=== PATIENT | female | born 1980 | race Caucasian/White ===

== ENCOUNTER 2017-03-31 19:30 | Emergency (ER) | payer OTHER ==
[~2017-03-31] VITALS: Ht 177.8 cm; Wt 90.0 kg
[~2017-03-31 19:30] MED LIST: DXM4T PO
[2017-03-31 19:40] VITALS: BP 127/85; PULSE 83; RESP 16; O2SAT 98
--- NOTE | 2017-03-31 20:15 | DRSVH ---
PROCEDURE: X-RAY LEFT HAND, MINIMUM THREE VIEWS ([id number]) INDICATIONS: injury TECHNIQUE: 3 views of the hand(s) acquired. COMPARISON: None. FINDINGS: Bones: No fractures or dislocations. Carpal bones are normally aligned. No suspicious bony lesions . Soft tissues: No suspicious soft tissue calcifications. IMPRESSION: No bony abnormality is identified. No radiopaque foreign body is seen. Dictated by: Alex Butts M.D. on 03/31/2017 at 20:12 Approved by: Alex Butts M.D. on 03/31/2017 at 20:13
--- NOTE | 2017-03-31 20:18 | ED.REPORT ---
HPI-Extremity Problem Upper Date of Service Mar 31, 2017 ED Provider: Jake Quintero MD Pt is a generally healthy 36 y/o female presenting to the ED due to left hand injury which occurred at 18:30. The patient was at work and a metal object punctured her left hand while she was working with a metal shelf, she is not sure what it was. She c/o mild associated 4th digit numbness about the ulnar aspect. She denies any other injuries or complaints. She is able to fully flex and extend her finger. She is not sure how deeply the hand was punctured. Nursing Notes Stated Complaint: HAND LACERATION Chief Complaint: Laceration Nursing Notes Reviewed: Yes Allergies: Coded Allergies: Cephalosporins (Verified Allergy, Severe, CEFTRIAXONE anaphlaxis, 03/31/17) Penicillins (Verified Allergy, Severe, Anaphlaxis, 03/31/17) azithromycin (Verified Allergy, Intermediate, Hives, 03/31/17) doxycycline (Verified Allergy, Intermediate, rash, 03/31/17) Sulfa (Sulfonamide Antibiotics) (Verified Allergy, Mild, rash, 03/31/17) Scheduled Clindamycin (Clindamycin) 300 Mg Capsule 300 MG PO QID Dexamethasone (Dexamethasone) 4 Mg Tablet 8 MG PO DAILY 8mg 08/18 and 08/19 General Time Seen by MD: 20:14 Chief Complaint Hand Injury left Hx Obtained From: Patient Arrived By: Walk-in Onset Occurred: 1 - 4 hours ago Symptom Duration: Since onset Location: : Hand left Quality: Painful Severity: Current: Moderate Severity: Maximum: Moderate Past Medical History Past Medical History Asthma Past Surgical History denies Family History Grandmother [place] x2 Smoking History Current Every Day Smoker Social History Alcohol Use: "Social" Ambulatory Status Independent Review of Systems Constitutional: Denies: Chills, Fever Musculoskeletal: Reports: Extremity pain Neurologic: Reports: Numbness, Denies: Weakness Complete sys rev & neg: except as marked. Physical Exam Initial Vital Signs Vital Signs (First) Date Time Temp Pulse Resp B/P Pulse Ox O2 Delivery O2 Flow Rate FiO2 03/31/17 19:40 37. 83 16 127/85 98 Room Air Initial VS: Reviewed, Vital signs normal Head / Eyes: Atraumatic, Normocephalic, PERRL ENT: Mucous membranes moist, Conjunctiva normal, No scleral icterus Neck: Supple, Full range of motion Respiratory: No respiratory distress Cardiovascular: Intact distal pulses Abdomen / GI: Soft, No distention Lower Extremities: Vascular intact, Neuro intact, No swelling Skin: Warm, Dry, No cyanosis Neurologic: Alert, Oriented, Nonfocal Psychiatric: Mood/affect normal, Behavior normal, Normal thought content General/Constitutional: Awake, Alert, No acute distress, Cooperative, Not toxic appearing Wrist / Hand: Full range of motion, No deformity, Neurologic intact, Vascular intact, No ligamentous injury, Tendon function NL, No compartment syndrome, No circumferential injury, No clubbing/cyanosis, No edema Puncture wound about dorsum of left hand between 4th and 5th fingers. Extends to subcutaneous tissue. No evidence of neurovascular or ligamentous structures. Able to fully flex and extend fingers. No FB present. Interpretation & Diagnostics X-Ray Interpretation Xray Interpretation: IMPRESSION: No bony abnormality is identified. No radiopaque foreign body is seen. Dictated by: Alex Butts M.D. on 03/31/2017 at 20:12 Approved by: Alex Butts M.D. on 03/31/2017 at 20:13 Study Performed: 3 view X-Ray Ordered: Hand left Interpretation / Wet Read by: Interpret - Radiologist Re-Eval/Medical Decision Med Decision/Clinical Course Pt is a generally healthy 36 y/o female presenting to the ED due to left hand injury which occurred at 18:30. The patient was at work and a metal object punctured her left hand while she was working with a metal shelf, she is not sure what it was. She c/o mild associated 4th digit numbness about the ulnar aspect. She denies any other injuries or complaints. She is able to fully flex and extend her finger. She is not sure how deeply the hand was punctured. Examination reveals a puncture wound as described above. Wound was copiously irrigated and probed. I do not see any evidence of vascular injury. I do not see any evidence of ligamentous injury. The patient is fully able to flex and extend the finger. There is no foreign body present. Plain films demonstrate no obvious foreign body. The patient has some mild sensory loss about the ulnar aspect of the finger and I suspect there may have been some mild nerve damage. There is no active bleeding and the wound is very small and well approximated at the edges. Given my concern for development of possible infection I do not feel that suturing the wound is indicated. The patient has multiple medication allergies but she is able to take clindamycin. I prescribed a prophylactic course of clindamycin. She is advised to keep the wound clean and covered with sterile dressings at all times. I had a long discussion with the patient about the possibility of significant infection with this type of injury and the fact that she needs to return to emergency room immediately if she develops swelling, redness, warmth, purulent drainage or other concerning signs or symptoms. She has been referred to orthopedic surgery for further management. Prior to discharge follow-up and return precautions were reviewed in detail with the patient who verbalized understanding and agreement with the plan. The patient was discharged in stable condition. Re-Evaluation/Progress : Time of Eval: 22:19 Re-Evaluation/Progress Note: Pt rechecked. Informed pt of plan for treatment. Pt understands and agrees with plan for treatment. F/U instructions and RTER warnings given. All questions addressed.No FB present. Counseled Regarding: Diagnosis, Need for follow-up, When/why to return to ED Discharge & Departure Impression: Primary Impression: Puncture wound of left hand Encounter type: initial encounter Foreign body presence: without foreign body Qualified Code: S61.432A - Puncture wound without foreign body of left hand, initial encounter Additional Impressions: Tingling sensation Left hand pain Disposition: Home Discharge Condition All VS Reviewed: Yes Condition: Stable Patient Instructions: Acute Wound Care (GEN) Additional Instructions: Thank you for seeking care at the emergency room. Our primary goal today in the ED was to evaluate you for any life-threatening conditions. Your evaluation was reassuring. Keep the wound clean and dry. You will be discharged with a prescription for antibiotics. Take the full course as prescribed. You should follow-up with your primary doctor in the next week for a wound recheck. You can follow-up with the hand surgeon Dr. Galarza if you continue to experience symptoms. You should return to the ED immediately if you develop redness, swelling, pain, worsening numbness, decreased range of motion of your fingers, fevers, shaking chills, or any other concerning signs or symptoms. Thank you for letting us partake in your care today. Referrals: Lilibeth Dean MD (PCP) Andres Galarza MD Scribe Attestation Portions of this note were transcribed by Brown Lewis. I, Dr. Quintero, personally performed the history, physical exam and medical decision-making; I reviewed and confirmed the accuracy of the information in the transcribed note. Signed by Fang Zheng, 03/31/[id number] copies to: Andres Galarza MD; Lilibeth Dean MD, Beck O MD Mar 31, 2017 20:18 BROWN LEWIS Mar 31, 2017 21:19
[2017-03-31] MEDS ORDERED: CLIN-78 PO (22:27)
[2017-03-31 23:03] VITALS: BP 114/80; PULSE 77; RESP 16; O2SAT 100
== END 2017-03-31 23:15 | disposition home or self-care (01) ==
LOC: SED 19:30
DX: S61.432A Puncture wound without foreign body of left hand, initial encounter (principal); R20.2 Paresthesia of skin; W26.8XXA Contact with other sharp object(s), not elsewhere classified, initial encounter; Y99.0 Civilian activity done for income or pay; Y92.59 Other trade areas as the place of occurrence of the external cause; F17.210 Nicotine dependence, cigarettes, uncomplicated; J45.909 Unspecified asthma, uncomplicated; Z88.1 Allergy status to other antibiotic agents; Z88.0 Allergy status to penicillin; Z88.2 Allergy status to sulfonamides

== ENCOUNTER 2017-05-10 21:00 | Emergency (ER) | payer OTHER ==
[~2017-05-10] VITALS: Ht 177.8 cm; Wt 88.6 kg
[~2017-05-10 21:00] MED LIST changes: +CLIN-78 PO
[2017-05-10 21:37] VITALS: BP 119/78; PULSE 68; RESP 18; O2SAT 97
--- NOTE | 2017-05-10 22:12 | ED.REPORT ---
HPI-Extremity Problem Lower Date of Service May 10, 2017 ED Provider: Dr. Nando Carolina MD A 36 year old female presents to the ED complaining of diffuse, throbbing left foot pain secondary to an injury that occurred at 1300 this afternoon. Patient reportedly dropped a sofa onto her foot while rearranging her furniture. The area has become increasingly swollen and painful since the incident. Her pain is exacerbated when bearing weight. She denies any other injuries at this time. Patient denies any previous injuries to the foot. Nursing Notes Stated Complaint: LEFT FOOT PAIN Chief Complaint: Extremity Trauma Nursing Notes Reviewed: Yes Allergies: Coded Allergies: Cephalosporins (Verified Allergy, Severe, CEFTRIAXONE anaphlaxis, 03/31/17) Penicillins (Verified Allergy, Severe, Anaphlaxis, 03/31/17) azithromycin (Verified Allergy, Intermediate, Hives, 03/31/17) doxycycline (Verified Allergy, Intermediate, rash, 03/31/17) Sulfa (Sulfonamide Antibiotics) (Verified Allergy, Mild, rash, 03/31/17) Scheduled Clindamycin (Clindamycin) 300 Mg Capsule 300 MG PO QID Dexamethasone (Dexamethasone) 4 Mg Tablet 8 MG PO DAILY 8mg 08/18 and 08/19 General Time Seen by MD: 22:11 Chief Complaint Foot injury left Hx Obtained From: Patient Arrived By: Walk-in Onset Occurred: Just prior to arrival Symptom Duration: Since onset Caused by: Accidental Location: : Foot left Quality: Painful, Throbbing Severity: Current: Moderate Severity: Maximum: Moderate Pertinent Negative: Pt denies other symptoms Recent Healthcare: No recent doctor visit, No recent hospitalization Past Medical History Past Medical History Asthma Past Surgical History None reported. Family History Grandmother [place] x2 Smoking History Current Every Day Smoker Social History Alcohol Use: "Social" Other Social History: Good social support, Local resident Ambulatory Status Independent Review of Systems Musculoskeletal: Reports: Extremity pain (Left foot pain), Extremity swelling ( Left foot swelling) Complete sys rev & neg: except as marked. Physical Exam Initial Vital Signs Vital Signs (First) Date Time Temp Pulse Resp B/P Pulse Ox O2 Delivery O2 Flow Rate FiO2 05/10/17 21:37 37.0 68 18 119/78 97 Room Air Initial VS: Reviewed Head / Eyes: Atraumatic, Normocephalic, PERRL Neck: Supple, Non-tender, Full range of motion Upper Extremities: Vascular intact, Neuro intact, No swelling, No tenderness Skin: Warm, Dry, No cyanosis Neurologic: Alert, Oriented, Nonfocal Psychiatric: Mood/affect normal, Behavior normal, Normal thought content Lower Extremity / Pelvis / MS: Atraumatic, Inspection NL, Neurologic intact, Vascular intact Ankle / Foot: Atraumatic, Neurologic intact, Vascular intact Left Foot: Positive: Swelling present..., Tenderness present..., Warmth present No crepitus General/Constitutional: Awake, Alert, No acute distress Respiratory / Chest: Atraumatic, No respiratory distress Cardiovascular: Peripheral circulation NL, Pulses = bilaterally Good DP/PT pulses Interpretation & Diagnostics X-Ray Interpretation Xray Interpretation: IMPRESSION: Negative for fracture X-Ray Ordered: Foot left Interpretation / Wet Read by: Wet read ED physician Re-Eval/Medical Decision Re-Evaluation/Progress : Time of Eval: 22:19 Re-Evaluation/Progress Note: She declines crutches at this time. All questions are addressed at this time. She understands and agrees with the intended treatment plan. Counseled Regarding: Diagnosis, Need for follow-up, When/why to return to ED Discharge & Departure Impression: Primary Impression: Contusion of foot, left Disposition: Home Discharge Condition All VS Reviewed: Yes Condition: Improved Patient Instructions: Foot Contusion (ED) Additional Instructions: Thank you for trusting us with you care this evening. Your X-ray was negative for fracture and your pain and swelling should resolve within the next few days. Take 800 mg of ibuprofen every 8 hours as needed for pain. Use ice intermittently for pain and swelling. Follow up with your primary care physician in the on Sunday if symptoms persist. Please return to the emergency department for any new or worsening symptoms including worsening pain, weakness or any numbness/tingling in the foot. Referrals: Catalina Lin MD (PCP) Scribe Attestation Portions of this note were transcribed by Briana Stein. I, Dr. Carolina personally performed the history, physical exam and medical decision-making; I reviewed and confirmed the accuracy of the information in the transcribed note. copies to: Catalina Lin MD, Kirk H MD May 10, 2017 22:12 BRIANA STEIN May 10, 2017 22:18
[2017-05-10] MEDS ORDERED: Ibuprofen Suspension 20 mg/mL 5 mL Suspension PO ONE (22:20)
[2017-05-10 22:35] VITALS: BP 119/78; PULSE 68; RESP 18; O2SAT 97
--- NOTE | 2017-05-11 14:36 | DRSVH ---
PROCEDURE: X-RAY LEFT FOOT COMPLETE, MINIMUM THREE VIEWS ([id number]) INDICATIONS: pain TECHNIQUE: 3 views of the foot were acquired. COMPARISON: None. FINDINGS: Bones: No fractures or dislocations. No suspicious bony lesions. Soft tissues: No tibiotalar joint effusion. Achilles tendon appears normal. IMPRESSION: No displaced fracture seen. If there is continued pain, followup exam or additional shannan ging such as MRI or CT could be performed for further assessment. Dictated by: Crow Amado [facility] Interpreted: Lamberto Cleaning MD on 05/11/2017 at 8:25 Approved by: Lamberto Cleaning M.D. on 05/11/2017 at 14:34
== END 2017-05-10 22:58 | disposition home or self-care (01) ==
LOC: SED 21:00
DX: S90.32XA Contusion of left foot, initial encounter (principal); W22.8XXA Striking against or struck by other objects, initial encounter; Y93.E9 Activity, other interior property and clothing maintenance; Y92.89 Other specified places as the place of occurrence of the external cause; Y99.8 Other external cause status; J45.909 Unspecified asthma, uncomplicated; F17.200 Nicotine dependence, unspecified, uncomplicated; Z88.0 Allergy status to penicillin; Z88.1 Allergy status to other antibiotic agents; Z88.2 Allergy status to sulfonamides
CPT/HCPCS: 73630; 96372; 99284; J1885